=== PATIENT | female | born 1955 | race American Indian/Alaskan Native ===

== ENCOUNTER 2019-11-07 06:48 | Emergency (ER) | payer SELFPAY ==
[2019-11-07 06:56] VITALS: BP 112/94
[2019-11-07 07:41] LABS: Hematocrit 36.1 % (30.3-42.9); Hemoglobin 11.5 gm/dl (10.1-14.3); Mean Corpuscular HGB Conc 32 % (30-34); Mean Corpuscular Volume 85 fl (79-97); Red Blood Count 4.26 M/mm3 (3.65-5.03); Red Cell Distribution Width 16.2 % (13.2-15.2)
[2019-11-07 07:55] LABS: Lymphocytes % (Auto) 28.1 % (13.4-35.0)
[2019-11-07 07:56] LABS: Basophils # (Auto) 0.1 K/mm3 (0.0-0.1); Basophils % (Auto) 1.3 % (0.0-1.8); Eosinophils # (Auto) 0.3 K/mm3 (0.0-0.4); Lymphocytes # (Auto) 1.8 K/mm3 (1.2-5.4); Monocytes # (Auto) 0.5 K/mm3 (0.0-0.8); Monocytes % (Auto) 8.3 % (0.0-7.3)
[2019-11-07 08:10] LABS: Alanine Aminotransferase 20 units/L (7-56); Albumin 3.8 g/dL (3.9-5); BUN/Creatinine Ratio 10; Blood Urea Nitrogen 11 mg/dL (7-17); Calcium 9.3 mg/dL (8.4-10.2); Hemolysis Index 51
[2019-11-07 09:15] LABS: Platelet Count 170 K/mm3 (140-440)
== END 2019-11-07 08:00 ==
LOC: ED 06:48
DX: J02.9 Acute pharyngitis, unspecified (principal); Z53.21 Procedure and treatment not carried out due to patient leaving prior to being seen by health care provider
CPT/HCPCS: 36415; 80053; 82140; 82962; 83690; 85007; 85025; 87040

== ENCOUNTER 2020-03-12 15:14 | Emergency (ER) | payer MEDICARE ==
[2020-03-12 15:25] VITALS: BP 134/92
== END 2020-03-12 17:10 | disposition left against medical advice (07) ==
LOC: ED 15:14
DX: J45.909 Unspecified asthma, uncomplicated (principal); Z53.21 Procedure and treatment not carried out due to patient leaving prior to being seen by health care provider